=== PATIENT | female | born 1980 | race Caucasian/White ===

== ENCOUNTER 2017-11-17 19:12 | Emergency (ER) | payer OTHER ==
[2017-11-17 19:29] VITALS: BP 138/83
[2017-11-17] MEDS ORDERED: Ketorolac INJ* 60 MG/2 ML VIAL IM ONE (19:54)
[2017-11-17] MEDS ORDERED: Metoclopramide TAB* 10 MG PO ONE (20:06)
--- NOTE | 2017-11-17 20:31 | UC ---
Hieu Goff Stephanie, scribed for Basilio Phan MD on 11/17/17 at 1959 . Complaint Female HPI - HPI Summary HPI Summary: The pt is a 37 y/o F presenting to with c/o pelvic pain that began on secondary to dermoid ovarian cysts. She denies vaginal discharge, vaginal bleeding and diarrhea. She has an appointment with her specialist Dr. Cm in 2 months to remove the cyst. She rates her pain as a 5 out of 10 in severity. - History Of Current Complaint Chief Complaint: UCGU Stated Complaint: OVARIAN CYST Time Seen by Provider: 11/17/17 19:46 Hx Obtained From: Patient Hx Last Menstrual Period: 5 yrs ago ?: No Onset/Duration: Gradual Onset, Lasting Weeks, Still Present Timing: Constant Severity Currently: Moderate Pain Intensity: 5 Pain Scale Used: 0-10 Numeric Aggravating Factor(s): Nothing Alleviating Factor(s): Nothing Associated Signs And Symptoms: Negative: Vaginal Bleeding/Discharge, Vaginal Discharge - Allergies/Home Medications Allergies/Adverse Reactions: Allergies Allergy/AdvReac Type Severity Reaction Status Date / Time No Known Allergies Allergy Verified 11/17/17 19:29 PMH/Surg Hx/FS Hx/Imm Hx Previously Healthy: No - Hx of dermoid ovarian cyst - Surgical History Surgical History: Yes Surgery Procedure, Year, and Place: c section x 2; uterine ablation-2011; gastric bypass Jun 2010 - Family History Known Family History: Negative: Renal Disease - Social History Occupation: Employed Full-time Lives: With Family Alcohol Use: Occasionally Substance Use Type: None Smoking Status (MU): Former Smoker Have You Smoked in the Last Year: No When Did the Patient Quit Smoking/Using Tobacco: "many moons ago" Review of Systems Constitutional: Negative Skin: Negative Eyes: Negative ENT: Negative Respiratory: Negative Cardiovascular: Negative Gastrointestinal: Negative Genitourinary: Other - Pelvic pain Motor: Negative Neurovascular: Negative Musculoskeletal: Negative Neurological: Negative Psychological: Negative All Other Systems Reviewed And Are Negative: Yes Physical Exam - Summary Physical Exam Summary: VITAL SIGNS: Reviewed. GENERAL: Patient is a well-developed and nourished FEMALE who is lying comfortable in the stretcher. Patient is not in any acute respiratory distress. HEAD AND FACE: Normocephalic EYES: PERRLA, EOMI x 2. EARS: Hearing grossly intact. MOUTH: Oropharynx within normal limits. NECK: Supple, trachea is midline, no adenopathy, no JVD, no carotid bruit. CHEST: Symmetric, no tenderness at palpation LUNGS: Clear to auscultation bilaterally. No wheezing or crackles. CVS: Regular rate and rhythm, S1 and S2 present, no murmurs or gallops appreciated. ABDOMEN: Soft, tenderness in R pelvic area. Bowel sounds are normal. No abdominal abnormal pulsations. EXTREMITIES: Full ROM in all major joints, no edema, no cyanosis or clubbing. NEURO: Alert and oriented x 3. No acute neurological deficits. Speech is normal and follows commands. SKIN: Dry and warm Triage Information Reviewed: Yes Vital Signs: Initial Vital Signs Temp 98.7 F 11/17/17 19:27 Pulse 83 11/17/17 19:27 Resp 16 11/17/17 19:27 BP 138/83 11/17/17 19: Pulse Ox 100 11/17/17 19:27 Vital Signs Reviewed: Yes Complaint Female Dx - Course Course Of Treatment: 37-year-old female presents to the urgent care with a right pelvic pain. She reports that she has pain secondary to a dermoid cyst which she is scheduled to have surgery for removal of the cyst. However she is having increasing pain in the flareup therefore she requested pain medication. She reports that she had an ultrasound about 3 weeks ago and he was comfortable , the presence of the diagnosis. She was advised to the ER to rule out any other pathology such as twisting or the ovary or an acute appendicitis however she reports that she works with Dr. Hudson and he knows about the cause of the pain. She declines to go to the ER. She only requests some pain medications until she sees her [facility] doctor. She is aware that the differential diagnosis is an ovarian torsion or an acute appendicitis however the patient declined to go to the ER. She was given Toradol for pain and Reglan for nausea and vomiting. She requested to give him a prescription for Percocet . She was instructed to return to the emergency department if she develops any increasing pain, fevers or chills, nausea and vomiting. She understands and agrees. Urinalysis is negative for UTI, urine test is negative. - Differential Dx/Diagnosis Provider Diagnoses: ovarian cyst Discharge - Sign-Out/Discharge Documenting (check all that apply): Discharge/Admit/Transfer - Discharge Plan Condition: Stable Disposition: HOME Prescriptions: oxyCODONE/Acetamin 5/325 MG* [Percocet 5/325 TAB*] 1 tab PO Q6H PRN #10 tab MDD 4 PRN Reason: Pain Patient Education Materials: Ovarian Cyst (ED) Referrals: Yao Westfall MD [Primary Care Provider] - Additional Instructions: Take medications as indicated Follow-up with [facility] - Billing Disposition and Condition Condition: STABLE Disposition: Home The documentation as recorded by the Hieu bautista Stephanie accurately reflects the service I personally performed and the decisions made by Sylvester wiley Walter, MD.
== END 2017-11-17 20:10 | disposition home or self-care (01) ==
LOC: UCEAST 19:12
DX: D27.9 Benign neoplasm of unspecified ovary (principal); Z98.84 Bariatric surgery status; Z87.891 Personal history of nicotine dependence
CPT/HCPCS: 81003; 84702; 96372; 99212; A9270-GY; G0463; J1885

== ENCOUNTER 2019-02-24 13:01 | Emergency (ER) | payer BC ==
[2019-02-24 13:19] VITALS: BP 135/77
--- NOTE | 2019-02-24 13:23 | UC ---
Lower Extremity/Ankle HPI - HPI Summary HPI Summary: 38 yo female presents with RIGHT foot pain. She tells me that she works as a nurse on the OB floor and for the past few weeks has had increasing dorsal forefoot pain that is worse with ambulation, weight bearing, and after being on her feet throughout the day. She has tried multiple different types of footwear as well as shoe inserts with no relief. Rest and non-weight bearing improve her discomfort. She mentions that she has a history of "flat feet' and needed custom shoe inserts as a child to help with her arch and constant pain. - History of Current Complaint Chief Complaint: UCGeneralIllness Stated Complaint: FOOT INJURY Time Seen by Provider: 02/24/19 13:22 Hx Obtained From: Patient Hx Last Menstrual Period: 5 yrs ago Onset/Duration: Gradual Onset Severity Initially: Mild Severity Currently: Mild Pain Intensity: 4 Pain Scale Used: 0-10 Numeric - Allergies/Home Medications Allergies/Adverse Reactions: Allergies Allergy/AdvReac Type Severity Reaction Status Date / Time No Known Allergies Allergy Verified 02/24/19 13:19 Home Medications: Home Medications DULoxetine CAP* [Cymbalta CAP*] 02/24/19 [History] Progesterone* [Progesterone in Oil*] 02/24/19 [History] PMH/Surg Hx/FS Hx/Imm Hx Psychological History: Anxiety - Surgical History Surgical History: Yes Surgery Procedure, Year, and Place: c section x 2; uterine ablation-2011; gastric bypass Jun 2010. TUBAL LIGATION - Family History Known Family History: Negative: Renal Disease - Social History Lives: With Family Alcohol Use: Occasionally Alcohol Amount: 5-10 weekly Substance Use Type: None Smoking Status (MU): Former Smoker Amount Used/How Often: 10 CIGARETTES PER DAY X 5 YEARS Have You Smoked in the Last Year: No When Did the Patient Quit Smoking/Using Tobacco: 2003 - Immunization History Most Recent Influenza Vaccination: 2017 Most Recent Pneumonia Vaccination: none Review of Systems All Other Systems Reviewed And Are Negative: No Constitutional: Positive: Negative Skin: Positive: Negative Respiratory: Positive: Negative Cardiovascular: Positive: Negative Neurovascular: Positive: Negative Musculoskeletal: Positive: Other: - Right foot pain Neurological: Positive: Negative Psychological: Positive: Negative Physical Exam - Summary Physical Exam Summary: GENERAL: NAD. WDWN. No pain distress. SKIN: No rashes, sores, lesions, or open wounds. CHEST: No accessory muscle use. Breathing comfortably and in no distress. CV: Pulses intact PT and DP. Cap refill <2seconds MSK: RIGHT FOOT: Moves all toes without pain. Slight TTP about dorsal forefoot at 3rd MT. Strength 5/5. No edema or obvious bony deformities. NEURO: Alert. Sensations intact and symmetric B/L LEs PSYCH: Age appropriate behavior. Triage Information Reviewed: Yes Vital Signs: Initial Vital Signs Temp 97.7 F 02/24/19 13:15 Pulse 102 02/24/19 13:15 Resp 16 02/24/19 13:15 BP 135/77 02/24/19 13:15 Pulse Ox 99 02/24/19 13:15 Vital Signs Reviewed: Yes Diagnostics - Radiology XR Radiology Interpretation Completed By: Radiologist Summary of Radiographic Findings: IMPRESSION: #. Negative exam. Lower Extremity Course/Dx - Course Course Of Treatment: XR as above. Discussed with pt. Suspect pain due to tendinitis/overuse. Given her flat feet, I will refer her to Orthopedics for likely custom sole inserts and further evaluation. - Differential Dx/Diagnosis Provider Diagnosis: Tendinitis Discharge ED - Sign-Out/Discharge Documenting (check all that apply): Patient Departure All imaging exams completed and their final reports reviewed: Yes - Discharge Plan Condition: Stable Disposition: HOME Patient Education Materials: Tendinitis (ED), Metatarsalgia (DC) Referrals: Yao Westfall MD [Primary Care Provider] - Braulio Vogel MD [Medical Doctor] - As Soon As Possible Additional Instructions: If you develop a fever, shortness of breath, chest pain, new or worsening symptoms - please call your PCP or go to the ED immediately. I recommend that you follow up with Orthopedics at the number below within 2 weeks for further evaluation of your symptoms - Billing Disposition and Condition Condition: STABLE Disposition: Home
== END 2019-02-24 14:15 | disposition home or self-care (01) ==
LOC: UCEAST 13:01
DX: M77.51 Other enthesopathy of right foot and ankle (principal); F41.9 Anxiety disorder, unspecified; Z87.891 Personal history of nicotine dependence
CPT/HCPCS: 99211; G0463